=== PATIENT | male | born 1990 | race African-American/Black ===

== ENCOUNTER 2022-07-25 14:38 | Emergency (ER) | payer OTHER ==
[~2022-07-25] VITALS: Ht 193 cm; Wt 76.5 kg
[2022-07-25] MEDS ORDERED: BACT800T5 PO (16:26)
[2022-07-25 16:34] VITALS: BP 134/80
[2022-07-27] MEDS ORDERED: CLIN150C17 PO (07:56)
== END 2022-07-25 16:35 | disposition home or self-care (01) ==
LOC: M ED 14:38
DX: L03.011 Cellulitis of right finger (principal); J45.909 Unspecified asthma, uncomplicated; F17.200 Nicotine dependence, unspecified, uncomplicated; Z91.013 Allergy to seafood